=== PATIENT | female | born 1955 | race Caucasian/White ===

== ENCOUNTER 2016-12-06 14:07 | Emergency (ER) | payer OTHER ==
--- NOTE | 2016-12-06 15:15 | ED ORDER SUMMARY ---
..... Patient: ARELI EAST OrderSheet [facility] VisitID: [id number] [address] [place] [address] 61y, F Registration Date/Time: 12/06/2016 ORDER SHEET Weight: 54.4 kg Allergies: Codeine GENERAL ORDERS: MEDICATION ORDERS: Valium PO 5 mg (HIGH ALERT MEDICATION, NOW) (14:21 12/06/2016 Zohreh Diego) (14:43 Tawnya Wilson) IV FLUIDS: ORDER SHEET NOTES: [Electronically signed by Hollie Villegas P.A.-C (15:23 12/06/2016)] [Electronically signed by Timo Rosales R.N. (15:55 12/06/2016)] [Electronically locked/signed by Timo Rosales R.N. (15:55 12/06/2016)]
--- NOTE | 2016-12-06 15:15 | ED CLINICAL REPORT ---
Clinical Report - Physicians/Mid Levels [facility] [address] [place] [address] 12/06/2016 14:08 Patient: ARELI EAST Time Seen: 15:21 Dec 06 2016. Arrived- By ambulance. Historian- patient and EMS personnel. HISTORY OF PRESENT ILLNESS Chief Complaint: BACK PAIN. Onset was just prior to arrival and it is still present. No bladder dysfunction. Additional history - pt with back pain over today, since lifting vacuume prior to arrival. Instant pain since this am, took at home meloxicam/ and muscle relaxer, and has had no relief. Pain worsens with movement, improves with rest/ lateral position. Patient denies an injury. REVIEW OF SYSTEMS No fever, chills, difficulty with urination, urinary frequency or vaginal discharge. No difficulty breathing, nausea or diarrhea. All systems otherwise negative, except as recorded above. PAST HISTORY Problems: Spinal Stenosis. Bone Spurs. Arthritis. Bipolar Disorder. Back Pain. Additional Surgeries: Hernia Repair. SPINAL FUSION . Medications: TraZODone HCl Oral. SUMAtriptan Succinate Oral. Norvasc Oral. Meloxicam Oral. Omeprazole Oral. Cyclobenzaprine HCl Oral. Zolpidem Tartrate Oral. LORazepam Oral. Gabapentin Oral. BuPROPion HCl Oral. Allergies: Codeine. SOCIAL HISTORY Never smoker. History of drug use: marijuana. No alcohol use. ADDITIONAL NOTES The nursing notes have been reviewed. PHYSICAL EXAM Vital Signs: 12/06/2016 14:20 BP: 133/76. HR: 87. RR: 16. O2 saturation: 99%. Temp: 98 F. Pain level now: 2/10. Appearance: Alert. ENT: Ears normal. Neck: Normal inspection. Neck nontender. CVS: Heart sounds normal. Pulses normal. Respiratory: No respiratory distress. Breath sounds normal. Abdomen: No visible injury. Soft. Back: Vertebral point tenderness. Soft tissue tenderness (left lumbar tendernss). Skin: Skin warm. Normal skin color. Neuro: Oriented X 3. PROGRESS AND PROCEDURES Course of Care: pt with ability to ambulate here, no red flags, no fall. No systemic, no urinary sx. Pt stable. TO f/u outpatient. Pt with no radiation of pain. Patient with no concern for cauda equina/ spinal cord abscess. Pain post lifting, and reproduced on exam. Stable. TO f/u outpatient. Patient is stable. Physical exam findings are improved. Symptoms better. Patient/family counseled. Disposition: Discharged. Condition: good. CLINICAL IMPRESSION Sprain of the lumbar spine. INSTRUCTIONS No crutches or knee immobilizer. Limit lifting. No strenuous activity. Rest. (alternate ice/ heat). Warnings: SEDATIVE MEDICATION: You were given sedative medication during your visit. Do not drive or operate dangerous machinery. CONTROLLED SUBSTANCE WARNINGS: The reason for controlled substance is related to an acute injury. Prescription Medications: Valium 2 mg: take 1 orally every 12 hours for 3 days as needed for muscle spasm. (#6) Ultram 50 mg: take 1 orally every 6 hours for 3 days. Dispense ten (10). No refills. Substitution is permissible. Follow-up: Follow up with your doctor in three days as needed. Understanding of the discharge instructions verbalized by patient. (Electronically signed by Hollie Villegas P.A.-C 12/06/2016 15:23)
--- NOTE | 2016-12-06 15:15 | ED CLINICAL REPORT ---
Clinical Report - Physicians/Mid Levels [facility] [address] [place] [address] 12/06/2016 14:08 Patient: ARELI EAST Time Seen: 15:21 Dec 06 2016. Arrived- By ambulance. Historian- patient and EMS personnel. HISTORY OF PRESENT ILLNESS Chief Complaint: BACK PAIN. Onset was just prior to arrival and it is still present. No bladder dysfunction. Additional history - pt with back pain over today, since lifting vacuume prior to arrival. Instant pain since this am, took at home meloxicam/ and muscle relaxer, and has had no relief. Pain worsens with movement, improves with rest/ lateral position. Patient denies an injury. REVIEW OF SYSTEMS No fever, chills, difficulty with urination, urinary frequency or vaginal discharge. No difficulty breathing, nausea or diarrhea. All systems otherwise negative, except as recorded above. PAST HISTORY Problems: Spinal Stenosis. Bone Spurs. Arthritis. Bipolar Disorder. Back Pain. Additional Surgeries: Hernia Repair. SPINAL FUSION . Medications: TraZODone HCl Oral. SUMAtriptan Succinate Oral. Norvasc Oral. Meloxicam Oral. Omeprazole Oral. Cyclobenzaprine HCl Oral. Zolpidem Tartrate Oral. LORazepam Oral. Gabapentin Oral. BuPROPion HCl Oral. Allergies: Codeine. SOCIAL HISTORY Never smoker. History of drug use: marijuana. No alcohol use. ADDITIONAL NOTES The nursing notes have been reviewed. PHYSICAL EXAM Vital Signs: 12/06/2016 14:20 BP: 133/76. HR: 87. RR: 16. O2 saturation: 99%. Temp: 98 F. Pain level now: 2/10. Appearance: Alert. ENT: Ears normal. Neck: Normal inspection. Neck nontender. CVS: Heart sounds normal. Pulses normal. Respiratory: No respiratory distress. Breath sounds normal. Abdomen: No visible injury. Soft. Back: Vertebral point tenderness. Soft tissue tenderness (left lumbar tendernss). Skin: Skin warm. Normal skin color. Neuro: Oriented X 3. PROGRESS AND PROCEDURES Course of Care: pt with ability to ambulate here, no red flags, no fall. No systemic, no urinary sx. Pt stable. TO f/u outpatient. Pt with no radiation of pain. Patient with no concern for cauda equina/ spinal cord abscess. Pain post lifting, and reproduced on exam. Stable. TO f/u outpatient. Patient is stable. Physical exam findings are improved. Symptoms better. Patient/family counseled. Disposition: Discharged. Condition: good. CLINICAL IMPRESSION Sprain of the lumbar spine. INSTRUCTIONS No crutches or knee immobilizer. Limit lifting. No strenuous activity. Rest. (alternate ice/ heat). Warnings: SEDATIVE MEDICATION: You were given sedative medication during your visit. Do not drive or operate dangerous machinery. CONTROLLED SUBSTANCE WARNINGS: The reason for controlled substance is related to an acute injury. Prescription Medications: Valium 2 mg: take 1 orally every 12 hours for 3 days as needed for muscle spasm. (#6) Ultram 50 mg: take 1 orally every 6 hours for 3 days. Dispense ten (10). No refills. Substitution is permissible. Follow-up: Follow up with your doctor in three days as needed. Understanding of the discharge instructions verbalized by patient. (Electronically signed by Hollie Villegas P.A.-C 12/06/2016 15:23)
--- NOTE | 2016-12-06 15:15 | ED NURSING NOTES ---
Clinical Report - Nurses [facility] [address] [place] [address] 12/06/2016 14:08 Patient: ARELI EAST TRIAGE Triage time 1420 PM. --14:20 Timo Rosales R.N. 14:20 12/06/16. BP: 133/76. HR: 87. RR: 16. O2 saturation: 99%. Temp: 98 F. Pain level now: 12/15. --14:20 Timo Rosales R.N. Chief Complaint: BACK PAIN. --15:55 Timo Rosales R.N. Weight: 54.4 kg. Height/Length: 63 inches. BMI: 21.2. --14:23 Timo Rosales R.N. Medications BuPROPion HCl Oral. --14:21 Timo Rosales R.N. Gabapentin Oral. --14:21 Timo Rosales R.N. LORazepam Oral. --14:21 Timo Rosales R.N. Zolpidem Tartrate Oral. --14:21 Timo Rosales R.N. Cyclobenzaprine HCl Oral. --14:22 Timo Rosales R.N. Omeprazole Oral. --14:22 Timo Rosales R.N. Meloxicam Oral. --14:54 Timo Rosales R.N. Norvasc Oral. --14:54 Timo Rosales R.N. SUMAtriptan Succinate Oral. --14:54 Timo Rosales R.N. TraZODone HCl Oral. --14:55 Timo Rosales R.N. Allergies Codeine. --14:22 Timo Rosales R.N. History Arrived by EMS. Historian: patient. --14:20 Timo Rosales R.N. PAST MEDICAL HX: Tetanus status: up-to-date. Denies current . SOCIAL HX: Never smoker. History of drug use: marijuana. No alcohol use. FALL RISK ASSESSMENT: Fall risk assessment completed. No fall risk identified. NUTRITIONAL RISK ASSESSMENT: The nutritional risk assessment revealed no deficiencies. FUNCTIONAL ASSESSMENT: Functional assessment: no impairments noted. LEARNING NEEDS ASSESSMENT: The learning needs assessment revealed no barriers. SKIN INTEGRITY ASSESSMENT: Skin integrity risk assessment completed. No skin integrity risk identified. --15:52 Timo Rosales R.N. PROBLEMS: Spinal Stenosis. Bone Spurs. Arthritis. Bipolar Disorder. Back Pain. --14:23 Timo Rosales R.N. ADDITIONAL SURGERIES: Hernia Repair. SPINAL FUSION . --14:23 Timo Rosales R.N. PHYSICAL ASSESSMENT To room via stretcher. GENERAL / NEURO / PSYCH: Alert. Oriented X 4. Appears in no acute distress. RESPIRATORY: Respirations not labored. Chest nontender. Breath sounds within normal limits. CVS: Normal heart rate and rhythm. Capillary refill less than 2 seconds. GI / : Abdomen soft and nontender. Bowel sounds within normal limits. EXTREMITIES: Sensation intact in extremities. ROM of extremities within normal limits. BACK: Soft tissue tenderness in the left mid and lower lumbar paraspinous region. --14:55 Timo Rosales R.N. NURSING PROGRESS NOTES 14:43 12/06/2016 Valium (Diazepam) PO Tablets 5 mg given. Allergies verified, confirmed 5 rights and sedative warning given to the patient. --14:43 Timo Rosales R.N. DISPOSITION / DISCHARGE Condition at departure: improved. No learning barriers present. Reviewed medication(s) side effects, precautions, dosing and course information. Prescription(s) given to the patient. Patient verbalized understanding. Written instructions provided in Lao. The patient was discharged home and accompanied by pearl maker. She left the Emergency Department ambulatory and via private vehicle. Health Care Liaison driving. --15:53 Timo Rosales R.N. 15:52 12/06/16. BP: 143/84. HR: 89. RR: 16. O2 saturation: 99%. Temp: 98.2 F (oral). Pain level now: 0/10. --15:53 Timo Rosales R.N. The goals identified in the patient's plan of care were met. FALL RISK ASSESSMENT: Fall risk assessment completed. No fall risk identified. --15:53 Timo Rosales R.N. Departure time: 1553 PM. --15:53 Timo Rosales R.N. Locked/Released at 12/06/2016 15:55 by Timo Rosales R.N.
--- NOTE | 2016-12-06 15:15 | ED NURSING NOTES ---
Clinical Report - Nurses [facility] [address] [place] [address] 12/06/2016 14:08 Patient: ARELI EAST TRIAGE Triage time 1420 PM. --14:20 Timo Rosales R.N. 14:20 12/06/16. BP: 133/76. HR: 87. RR: 16. O2 saturation: 99%. Temp: 98 F. Pain level now: 12/15. --14:20 Timo Rosales R.N. Chief Complaint: BACK PAIN. --15:55 Timo Rosales R.N. Weight: 54.4 kg. Height/Length: 63 inches. BMI: 21.2. --14:23 Timo Rosales R.N. Medications BuPROPion HCl Oral. --14:21 Timo Rosales R.N. Gabapentin Oral. --14:21 Timo Rosales R.N. LORazepam Oral. --14:21 Timo Rosales R.N. Zolpidem Tartrate Oral. --14:21 Timo Rosales R.N. Cyclobenzaprine HCl Oral. --14:22 Timo Rosales R.N. Omeprazole Oral. --14:22 Timo Rosales R.N. Meloxicam Oral. --14:54 Timo Rosales R.N. Norvasc Oral. --14:54 Timo Rosales R.N. SUMAtriptan Succinate Oral. --14:54 Timo Rosales R.N. TraZODone HCl Oral. --14:55 Timo Rosales R.N. Allergies Codeine. --14:22 Timo Rosales R.N. History Arrived by EMS. Historian: patient. --14:20 Timo Rosales R.N. PAST MEDICAL HX: Tetanus status: up-to-date. Denies current . SOCIAL HX: Never smoker. History of drug use: marijuana. No alcohol use. FALL RISK ASSESSMENT: Fall risk assessment completed. No fall risk identified. NUTRITIONAL RISK ASSESSMENT: The nutritional risk assessment revealed no deficiencies. FUNCTIONAL ASSESSMENT: Functional assessment: no impairments noted. LEARNING NEEDS ASSESSMENT: The learning needs assessment revealed no barriers. SKIN INTEGRITY ASSESSMENT: Skin integrity risk assessment completed. No skin integrity risk identified. --15:52 Timo Rosales R.N. PROBLEMS: Spinal Stenosis. Bone Spurs. Arthritis. Bipolar Disorder. Back Pain. --14:23 Timo Rosales R.N. ADDITIONAL SURGERIES: Hernia Repair. SPINAL FUSION . --14:23 Timo Rosales R.N. PHYSICAL ASSESSMENT To room via stretcher. GENERAL / NEURO / PSYCH: Alert. Oriented X 4. Appears in no acute distress. RESPIRATORY: Respirations not labored. Chest nontender. Breath sounds within normal limits. CVS: Normal heart rate and rhythm. Capillary refill less than 2 seconds. GI / : Abdomen soft and nontender. Bowel sounds within normal limits. EXTREMITIES: Sensation intact in extremities. ROM of extremities within normal limits. BACK: Soft tissue tenderness in the left mid and lower lumbar paraspinous region. --14:55 Timo Rosales R.N. NURSING PROGRESS NOTES 14:43 12/06/2016 Valium (Diazepam) PO Tablets 5 mg given. Allergies verified, confirmed 5 rights and sedative warning given to the patient. --14:43 Timo Rosales R.N. DISPOSITION / DISCHARGE Condition at departure: improved. No learning barriers present. Reviewed medication(s) side effects, precautions, dosing and course information. Prescription(s) given to the patient. Patient verbalized understanding. Written instructions provided in German. The patient was discharged home and accompanied by tree pruner. She left the Emergency Department ambulatory and via private vehicle. Director Bioinformatics driving. --15:53 Timo Rosales R.N. 15:52 12/06/16. BP: 143/84. HR: 89. RR: 16. O2 saturation: 99%. Temp: 98.2 F (oral). Pain level now: 0/10. --15:53 Timo Rosales R.N. The goals identified in the patient's plan of care were met. FALL RISK ASSESSMENT: Fall risk assessment completed. No fall risk identified. --15:53 Timo Rosales R.N. Departure time: 1553 PM. --15:53 Timo Rosales R.N. Locked/Released at 12/06/2016 15:55 by Timo Rosales R.N.
--- NOTE | 2016-12-06 15:15 | ED ORDER SUMMARY ---
..... Patient: ARELI EAST OrderSheet [facility] VisitID: [id number] [address] [place] [address] 61y, F Registration Date/Time: 12/06/2016 ORDER SHEET Weight: 54.4 kg Allergies: Codeine GENERAL ORDERS: MEDICATION ORDERS: Valium PO 5 mg (HIGH ALERT MEDICATION, NOW) (14:21 12/06/2016 Zohreh Diego) (14:43 Tawnya Wilson) IV FLUIDS: ORDER SHEET NOTES: [Electronically signed by Hollie Villegas P.A.-C (15:23 12/06/2016)] [Electronically signed by Timo Rosales R.N. (15:55 12/06/2016)] [Electronically locked/signed by Timo Rosales R.N. (15:55 12/06/2016)]
--- NOTE | 2016-12-06 15:56 | ED MED RECONCILIATION SUMMARY ---
Patient: ARELI EAST Medication Reconciliation Report [facility] VisitID: [id number] [address] [place] [address] 61y, F Registration Date/Time: 12/06/2016 Weight: 54.4 kg Height/Length: 63 in. BMI: 21.3 ALLERGIES: Codeine The patient's Home Medications are listed below: THE FOLLOWING MEDICATIONS NEED TO BE RECONCILED: BuPROPion HCl Oral Cyclobenzaprine HCl Oral Gabapentin Oral LORazepam Oral Meloxicam Oral Norvasc Oral Omeprazole Oral SUMAtriptan Succinate Oral TraZODone HCl Oral Zolpidem Tartrate Oral The source(s) of the original Home Medication information: Not obtained. The following Medications were given to the patient in the Emergency Department: Valium [PO] PO 5 mg, administered: 12/06/2016 2:43:00 PM The following Medications were prescribed to the patient: Valium 2 mg: take 1 orally every 12 hours for 3 days as needed for muscle spasm.(#6) -- Hollie Villegas PAdrianoARob Ultram 50 mg: take 1 orally every 6 hours for 3 days. Dispense ten (10). No refills. Substitution is permissible. -- Hollie Villegas P.AGhulamC
--- NOTE | 2016-12-06 15:56 | ED DISCHARGE INSTRUCTIONS ---
Patient: ARELI EAST General Instructions [facility] VisitID: [id number] [place] [address] 61y, F Registration Date/Time: 12/06/2016 Sprain of the lumbar spine. INSTRUCTIONS No crutches or knee immobilizer. Limit lifting. No strenuous activity. Rest. (alternate ice/ heat). Warnings: SEDATIVE MEDICATION: You were given sedative medication during your visit. Do not drive or operate dangerous machinery. CONTROLLED SUBSTANCE WARNINGS: The reason for controlled substance is related to an acute injury. Prescription Medications: Valium 2 mg: take 1 orally every 12 hours for 3 days as needed for muscle spasm. (#6) Ultram 50 mg: take 1 orally every 6 hours for 3 days. Dispense ten (10). No refills. Substitution is permissible. Follow-up: Follow up with your doctor in three days as needed. Understanding of the discharge instructions verbalized by patient. ADDITIONAL INFORMATION Back Pain [Acute Or Chronic] Back pain is usually caused by an injury to the muscles or ligaments of the spine. Sometimes the disks that separate each bone in the spine may bulge and cause pain by pressing on a nearby nerve. Back pain may also appear after a sudden twisting/bending force (such as in a car accident), after a simple awkward movement, or lifting something heavy with poor body positioning. In either case, muscle spasm is often present and adds to the pain. Acute back pain usually gets better in one to two weeks. Back pain related to disk disease, arthritis in the spinal joints or spinal stenosis (narrowing of the spinal canal) can become chronic and last for months or years. Unless you had a physical injury (for example, a car accident or fall) X-rays are usually not ordered for the initial evaluation of back pain. If pain continues and does not respond to medical treatment, x-rays and other tests may be performed at a later time. Home Care: You may need to stay in bed the first few days. But, as soon as possible, begin sitting or walking to avoid problems with prolonged bed rest (muscle weakness, worsening back stiffness and pain, blood clots in the legs). When in bed, try to find a position of comfort. A firm mattress is best. Try lying flat on your back with pillows under your knees. You can also try lying on your side with your knees bent up towards your chest and a pillow between your knees. Avoid prolonged sitting. This puts more stress on the lower back than standing or walking. During the first two days after injury, apply an ICE PACK to the painful area for 20 minutes every 2-4 hours. This will reduce swelling and pain. HEAT (hot shower, hot bath or heating pad) works well for muscle spasm. You can start with ice, then switch to heat after two days. Some patients feel best alternating ice and heat treatments. Use the one method that feels the best to you. You may use acetaminophen (Tylenol) or ibuprofen (Motrin, Advil) to control pain, unless another pain medicine was prescribed. [NOTE: If you have chronic liver or kidney disease or ever had a stomach ulcer or GI bleeding, talk with your doctor before using these medicines.] Be aware of safe lifting methods and do not lift anything over 15 pounds until all the pain is gone. Follow Up with your doctor or this facility if your symptoms do not start to improve after one week. Physical therapy may be needed. [NOTE: If X-rays were taken, they will be reviewed by a radiologist. You will be notified of any new findings that may affect your care.] Get Prompt Medical Attention if any of the following occur: Pain becomes worse or spreads to your legs Weakness or numbness in one or both legs Loss of bowel or bladder control Numbness in the groin or genital area Tramadol Hydrochloride Oral tablet What is this medicine? TRAMADOL (TRA ma dole) is a pain reliever. It is used to treat moderate to severe pain in adults. How should I use this medicine? Take this medicine by mouth with a full glass of water. Follow the directions on the prescription label. If the medicine upsets your stomach, take it with food or milk. Do not take more medicine than you are told to take. Talk to your polysomnography technologist regarding the use of this medicine in children. Special care may be needed. What side effects may I notice from receiving this medicine? Side effects that you should report to your doctor or health health and social care teacher as soon as possible: allergic reactions like skin rash, itching or hives, swelling of the face, lips, or tongue breathing difficulties, wheezing confusion itching light headedness or fainting spells redness, blistering, peeling or loosening of the skin, including inside the mouth seizures Side effects that usually do not require medical attention (report to your doctor or health health and social care teacher if they continue or are bothersome): constipation dizziness drowsiness headache nausea, vomiting What may interact with this medicine? Do not take this medicine with any of the following medications: MAOIs like Carbex, Eldepryl, Marplan, Nardil, and Parnate This medicine may also interact with the following medications: alcohol or medicines that contain alcohol antihistamines benzodiazepines bupropion carbamazepine or oxcarbazepine clozapine cyclobenzaprine digoxin furazolidone linezolid medicines for depression, anxiety, or psychotic disturbances medicines for migraine headache like almotriptan, eletriptan, frovatriptan, naratriptan, rizatriptan, sumatriptan, zolmitriptan medicines for pain like pentazocine, buprenorphine, butorphanol, meperidine, nalbuphine, and propoxyphene medicines for sleep muscle relaxants naltrexone phenobarbital phenothiazines like perphenazine, thioridazine, chlorpromazine, mesoridazine, fluphenazine, prochlorperazine, promazine, and trifluoperazine procarbazine warfarin What if I miss a dose? If you miss a dose, take it as soon as you can. If it is almost time for your next dose, take only that dose. Do not take double or extra doses. Where should I keep my medicine? Keep out of the reach of children. Store at room temperature between 15 and 30 degrees C (59 and 86 degrees F). Keep container tightly closed. Throw away any unused medicine after the expiration date. What should I tell my health care provider before I take this medicine? They need to know if you have any of these conditions: brain tumor depression drug abuse or addiction head injury if you frequently drink alcohol containing drinks kidney disease or trouble passing urine liver disease lung disease, asthma, or breathing problems seizures or epilepsy suicidal thoughts, plans, or attempt; a previous suicide attempt by you or a family member an unusual or allergic reaction to tramadol, codeine, other medicines, foods, dyes, or preservatives or trying to get breast-feeding What should I watch for while using this medicine? Tell your doctor or health health and social care teacher if your pain does not go away, if it gets worse, or if you have new or a different type of pain. You may develop tolerance to the medicine. Tolerance means that you will need a higher dose of the medicine for pain relief. Tolerance is normal and is expected if you take this medicine for a long time. Do not suddenly stop taking your medicine because you may develop a severe reaction. Your body becomes used to the medicine. This does NOT mean you are addicted. Addiction is a behavior related to getting and using a drug for a non-medical reason. If you have pain, you have a medical reason to take pain medicine. Your doctor will tell you how much medicine to take. If your doctor wants you to stop the medicine, the dose will be slowly lowered over time to avoid any side effects. You may get drowsy or dizzy. Do not drive, use machinery, or do anything that needs mental alertness until you know how this medicine affects you. Do not stand or sit up quickly, especially if you are an older patient. This reduces the risk of dizzy or fainting spells. Alcohol can increase or decrease the effects of this medicine. Avoid alcoholic drinks. You may have constipation. Try to have a bowel movement at least every 2 to 3 days. If you do not have a bowel movement for 3 days, call your doctor or health health and social care teacher. Your mouth may get dry. Chewing sugarless gum or sucking hard candy, and drinking plenty of water may help. Contact your doctor if the problem does not go away or is severe. You have been given the following additional information: Back Pain (Acute Or Chronic) Tramadol Hydrochloride Oral tablet Limit lifting. No strenuous activity. Rest. (Electronically signed by Hollie Villegas P.A.-C 12/06/2016 15:23)
--- NOTE | 2016-12-06 15:56 | ED MAR SUMMARY ---
..... Medication Administration Record [facility] [address] [place] [address] Patient: ARELI EAST Visit ID: [id number] 61y, F Weight: 54.4 kg Height/Length: 63 in BMI: 21.2 ALLERGIES: Codeine Given 14:43 12/06/2016 Timo Rosales RTerence Medication Administered: VALIUM [PO] (DIAZEPAM), Dose: 5 mg Tablets PO. Medication Ordered: Valium PO 5 mg (HIGH ALERT MEDICATION, NOW).
--- NOTE | 2016-12-06 15:56 | ED MED RECONCILIATION SUMMARY ---
Patient: ARELI EAST Medication Reconciliation Report [facility] VisitID: [id number] [address] [place] [address] 61y, F Registration Date/Time: 12/06/2016 Weight: 54.4 kg Height/Length: 63 in. BMI: 21.3 ALLERGIES: Codeine The patient's Home Medications are listed below: THE FOLLOWING MEDICATIONS NEED TO BE RECONCILED: BuPROPion HCl Oral Cyclobenzaprine HCl Oral Gabapentin Oral LORazepam Oral Meloxicam Oral Norvasc Oral Omeprazole Oral SUMAtriptan Succinate Oral TraZODone HCl Oral Zolpidem Tartrate Oral The source(s) of the original Home Medication information: Not obtained. The following Medications were given to the patient in the Emergency Department: Valium [PO] PO 5 mg, administered: 12/06/2016 2:43:00 PM The following Medications were prescribed to the patient: Valium 2 mg: take 1 orally every 12 hours for 3 days as needed for muscle spasm.(#6) -- Hollie Villegas PAdrianoARob Ultram 50 mg: take 1 orally every 6 hours for 3 days. Dispense ten (10). No refills. Substitution is permissible. -- Hollie Villegas P.AGhulamC
--- NOTE | 2016-12-06 15:56 | ED MAR SUMMARY ---
..... Medication Administration Record [facility] [address] [place] [address] Patient: ARELI EAST Visit ID: [id number] 61y, F Weight: 54.4 kg Height/Length: 63 in BMI: 21.2 ALLERGIES: Codeine Given 14:43 12/06/2016 Timo Rosales RTerence Medication Administered: VALIUM [PO] (DIAZEPAM), Dose: 5 mg Tablets PO. Medication Ordered: Valium PO 5 mg (HIGH ALERT MEDICATION, NOW).
== END 2016-12-06 15:53 | disposition home or self-care (01) ==
LOC: ED SRH 14:07
DX: S33.5XXA Sprain of ligaments of lumbar spine, initial encounter (principal); X50.0XXA Overexertion from strenuous movement or load, initial encounter; Y92.9 Unspecified place or not applicable; Y93.9 Activity, unspecified; Y99.9 Unspecified external cause status; Z88.5 Allergy status to narcotic agent; Z79.899 Other long term (current) drug therapy

== ENCOUNTER 2016-12-28 10:23 | Outpatient (CLI) | payer OTHER ==
--- NOTE | 2016-12-28 10:48 | DIAGNOSTIC IMAGING REPORT ---
PROCEDURE: DEXA BONE DENSITY STUDY CLINICAL INDICATION: SCREENING COMPARISON: None. FINDINGS: LUMBAR SPINE: Bone mineral density 0.899 g/cm2, T score -1.3 osteopenia LEFT HIP: Bone mineral density 0.776 g/cm2, T score -0.7 normal LEFT FEMORAL NECK: Bone mineral density 0.857 g/cm2, T score -0.7 normal FRACTURE RISK CALCULATION ( when applicable): 10-year fracture risk of a major osteoporotic fracture 6.6% and of a hip fracture 0.3% (T score greater or equal to -1.0 to: NORMAL) (T score from -1.1 to -2.4: OSTEOPENIA) (T score ess than or equal to -2.5: OSTEOPOROSIS) IMPRESSION: 1. Lumbar spine osteopenia with a 10-year major fracture risk of 6.6% and a hip fracture risk of 0.3%
== END 2016-12-28 23:00 | disposition home or self-care (01) ==
LOC: XR SRH 10:23
DX: M85.88 Other specified disorders of bone density and structure, other site (principal)

== ENCOUNTER 2017-01-29 12:44 | Outpatient (CLI) | payer OTHER ==
--- NOTE | 2017-01-29 13:26 | DIAGNOSTIC IMAGING REPORT ---
PROCEDURE: XR CHEST 2 VIEW INDICATION: SHORTNESS OF BREATH TECHNIQUE: PA and lateral views. COMPARISON: None. FINDINGS: Lungs are clear. Heart and mediastinum are normal. Thorax is normal. IMPRESSION: 1. Negative chest.
== END 2017-01-29 23:00 ==
LOC: XR SRH 12:44 → LAB SRH 12:44 → XR SRH 23:00
DX: R06.02 Shortness of breath (principal)